=== PATIENT | male | born 1975 | race Caucasian/White ===

== ENCOUNTER 2019-02-12 09:39 | Emergency (ER) | payer MEDICAID, MEDICARE ==
[~2019-02-12] VITALS: Ht 180.3 cm; Wt 109.0 kg
[~2019-02-12 09:39] MED LIST: AZIT250T PO; CYCL-1 PO; DULO60CA45 PO; HYDR-3927 PO; TRAZ-219 PO
[2019-02-12 09:50] VITALS: BP 141/99
[2019-02-12] MEDS ORDERED: dexamethasone sod phosphate 10mg/ml inj IM STA (10:14)
[2019-02-12] MEDS ORDERED: ketorolac trometh inj. 60 MG/2 ML VIAL IM ONE (10:15)
[2019-02-12] MEDS ORDERED: HYDR-4353 PO (10:19)
[2019-02-12] MEDS ORDERED: METH4TAB81 PO (10:19)
== END 2019-02-12 10:55 | disposition home or self-care (01) ==
LOC: ER 09:40
DX: M54.5 Low back pain (principal); G89.29 Other chronic pain; F10.99 Alcohol use, unspecified with unspecified alcohol-induced disorder; Z98.890 Other specified postprocedural states; Z79.899 Other long term (current) drug therapy; Y90.9 Presence of alcohol in blood, level not specified
CPT/HCPCS: 96372; 99283; J1100; J1885

== ENCOUNTER 2019-04-25 17:09 | Emergency (ER) | payer MEDICARE, OTHER, MEDICAID ==
[~2019-04-25] VITALS: Ht 180.3 cm; Wt 96.9 kg
[~2019-04-25 17:09] MED LIST changes: +METH4TAB81 PO; -TRAZ-219 PO; +TRAZ-256 PO
[2019-04-25] MEDS ORDERED: orphenadrine citrate 60mg/2ml inj. IM ONE (17:55)
[2019-04-25] MEDS ORDERED: ketorolac trometh inj. 60 MG/2 ML VIAL IM ONE (17:55)
[2019-04-25] MEDS ORDERED: METH4TAB81 PO (18:01)
[2019-04-25 19:07] VITALS: BP 145/79
== END 2019-04-25 19:06 | disposition home or self-care (01) ==
LOC: ER 17:10
DX: G89.29 Other chronic pain (principal); M54.5 Low back pain; R20.0 Anesthesia of skin; Z98.890 Other specified postprocedural states; Z72.89 Other problems related to lifestyle; Z79.2 Long term (current) use of antibiotics; Z79.899 Other long term (current) drug therapy
CPT/HCPCS: 96372; 99284; J1885; J2360

== ENCOUNTER 2023-03-22 17:30 | Emergency (ER) | payer OTHER ==
[~2023-03-22] VITALS: Ht 180.3 cm; Wt 120.0 kg
[~2023-03-22 17:30] MED LIST changes: -DULO60CA45 PO; +DULO60CA60 PO
[2023-03-22] MEDS: HYDROcodone/acetaminophen 10/325mg tab PO ONE (17:59)
[2023-03-22] MEDS: ondansetron/PF 4mg/2ml inj IV ONE ×3 (18:53→22:32)
[2023-03-22] MEDS: morphine 4 MG/ML inj SYRINge IV ONE ×2 (18:53→22:31)
[2023-03-22] MEDS ORDERED: iohexol 300mg/ml 100ml inj. ONE (19:15)
[2023-03-22 19:44] LABS: BASOPHILS # (AUTO) 0.1 X10'3 (0-0.2); BASOPHILS % (AUTO) 0.6 % (0-1); EOSINOPHILS # (AUTO) 0.1 X10'3 (0-0.9); EOSINOPHILS % (AUTO) 0.4 % (0-6); HEMATOCRIT 47.3 % (42.0-52.0); LYMPHOCYTES # (AUTO) 1.7 X10'3 (1.1-4.8); LYMPHOCYTES % (AUTO) 8.6 % (21-51); MEAN CORPUSCULAR HEMOGLOBIN 28.9 PG (27.0-31.0); MEAN CORPUSCULAR HGB CONC 33.9 g/dL (33.0-36.5); MEAN CORPUSCULAR VOLUME 85.3 FL (78-98); MEAN PLATELET VOLUME 8.9 FL (7.4-10.4); MONOCYTES # (AUTO) 1.3 X10'3 (0-0.9); MONOCYTES % (AUTO) 6.6 % (2-12); NEUTROPHILS # (AUTO) 16.3 X10'3 (1.8-7.7); NEUTROPHILS % (AUTO) 83.8 % (42-75); PLATELET COUNT 238 X10'3 (140-440); RED BLOOD COUNT 5.55 X10'6 (4.70-6.10); RED CELL DISTRIBUTION WIDTH 13.8 % (11.5-14.5); WHITE BLOOD COUNT 19.4 X10'3 (4.5-11.0)
[2023-03-22 19:58] LABS: APTT 27 SECONDS (22-32); PROTHROMBIN TIME 10.9 SECONDS (9.0-12.0)
[2023-03-22] MEDS: morphine 10mg/ml inj. IV ONE (20:01)
[2023-03-22] MEDS: ceFAZolin/D5W- 1GM premix 50 ML IV ONE (20:01)
[2023-03-22] MEDS: TETanus/Pertussis (Acell)/Diphther VAC/PF (Tdap-Adult) 0.5ml syringe IMVAC ONE (20:12)
[2023-03-22] MEDS: LIDOcaine 1% 30ml preserv. free vial SQ STA (20:12)
[2023-03-22 20:27] LABS: ETHANOL < 10 MG/DL (<10)
[2023-03-22] MEDS: HYDROmorphone 1 mg/ml syringe IV ONE (23:29)
[2023-03-23] MEDS: HYDROmorphone 1 mg/ml syringe IV ONE (00:37)
[2023-03-23 01:10] LABS: ALANINE AMINOTRANSFERASE 41 U/L (12-78); ALBUMIN 4.4 G/DL (3.4-5.0); ALBUMIN/GLOBULIN RATIO 1.5 (1.1-1.5); ALKALINE PHOSPHATASE 52 IU/L (46-116); ANION GAP 11 (8-16); ASPARTATE AMINO TRANSFERASE 23 U/L (10-37); BILIRUBIN,TOTAL 0.6 MG/DL (0.1-1.0); BLOOD UREA NITROGEN 16 MG/DL (7-18); BUN/CREATININE RATIO 15.5 (10.0-20.0); CALCIUM 8.8 MG/DL (8.5-10.1); CHLORIDE 101 MMOL/L (99-107); CREATININE 1.03 MG/DL (0.60-1.10); GLUCOSE 97 MG/DL (70-104); POTASSIUM 3.6 MMOL/L (3.5-5.1); SODIUM 138 MMOL/L (135-145); TOTAL CARBON DIOXIDE 26.4 MMOL/L (24-32); TOTAL PROTEIN 7.3 G/DL (6.4-8.2); eCRCL 96 ML/MIN; eGFR 78 ML/MIN
[2023-03-23] MEDS ORDERED: OXYC-150 PO (01:29)
[2023-03-23] MEDS ORDERED: CEPH-585 PO (01:29)
[2023-03-23] MEDS: HYDROmorphone inj. 0.5 MG/0.5 ML DISP.SYRIN IM ONE (01:53)
[2023-03-23 02:33] VITALS: BP 128/90; PULSE 87; RESP 18; TEMP 97.6; O2SAT 98
== END 2023-03-23 02:41 | disposition home or self-care (01) ==
LOC: ER 17:32
DX: S92.902A Unspecified fracture of left foot, initial encounter for closed fracture (principal); S61.422A Laceration with foreign body of left hand, initial encounter; S90.415A Abrasion, left lesser toe(s), initial encounter; S40.212A Abrasion of left shoulder, initial encounter; S40.211A Abrasion of right shoulder, initial encounter; S40.812A Abrasion of left upper arm, initial encounter; S30.810A Abrasion of lower back and pelvis, initial encounter; S80.212A Abrasion, left knee, initial encounter; G89.29 Other chronic pain; Z98.52 Vasectomy status; Z72.89 Other problems related to lifestyle; Z79.2 Long term (current) use of antibiotics; Z79.899 Other long term (current) drug therapy; V28.09XA Other motorcycle driver injured in noncollision transport accident in nontraffic accident, initial encounter; Y93.89 Activity, other specified; Y92.89 Other specified places as the place of occurrence of the external cause; Y99.8 Other external cause status
CPT/HCPCS: 29515; 36415; 64450; 70450; 71045; 71260; 72125; 73120; 73130; 73630; 74177; 80053; 80320; 84484; 85025; 85610; 85730; 86885; 86900; 86901; 96365; 96372; 96375; 96376; 99291; A6223; J0690; J1170; J2270; J2274; J2405; J3490; L0172; L4360; Q9967; 90715; 99285; A4565; A6253; A6258; A6449